=== PATIENT | female | born 1955 | race African-American/Black ===

== ENCOUNTER 2019-11-25 18:07 | Inpatient (IN) | payer BC ==
[2019-11-25] MEDS ORDERED: PANTOPRAZOLE SODIUM 40 MG VIAL IVPUSH ONE (18:21)
[2019-11-25] MEDS ORDERED: ACETAMINOPHEN 1000 MG/100 ML VIAL (NON FORMULARY) IVPB ONE (18:28)
[2019-11-25] MEDS ORDERED: SODIUM CHLORIDE 0.9% 500 ML INFUS.BAG IV ONE ×2 (18:28→20:22)
[2019-11-25] MEDS ORDERED: CEFTRIAXONE 1 GM in DEXTROSE 5%-WATER - 100 ML IVPB ONE (18:30)
--- NOTE | 2019-11-25 18:33 | PDOC ---
History of Present Illness - General Chief Complaint: Respiratory Distress Stated Complaint: DIFFICULTY BREATHING Time Seen by Provider: 11/25/19 18:27 Past History - Medical History Allergies/Adverse Reactions: Allergies Allergy/AdvReac Type Severity Reaction Status Date / Time codeine Allergy Verified 11/25/19 18:31 Home Medications: Ambulatory Orders Acetaminophen [Pain Relief] 650 mg GT Q6H PRN 11/25/19 Amlodipine Besylate [Norvasc -] 5 mg GT DAILY 11/25/19 Carvedilol [Coreg -] 25 mg GT BID 11/25/19 Doxazosin Mesylate [Cardura] 1 mg GT DAILY 11/25/19 Folic Acid 1 mg GT DAILY 11/25/19 Losartan Potassium [Cozaar] 100 mg GT DAILY 11/25/19 Pantoprazole Sodium 40 mg GT DAILY 11/25/19 Sennosides [Senna] 8.8 mg GT HS 11/25/19 Thiamine Mononitrate [Vitamin B-1] 100 mg GT DAILY 11/25/19 Anemia: Yes Cardiac Disorders: Yes (SC) CVA: Yes (HEMORRHAGE) COPD: No (CHRONIC REP FAILURE) HTN: Yes Hypercholesterolemia: Yes - Surgical History GI Surgery: Yes (g tube) - Reproductive History Is Patient Now?: No - Psycho-Social/Smoking History Smoking History: Smoker current status UNK Have you smoked in the past 12 months: No Information on smoking cessation initiated: No - Substance Abuse Hx (Audit-C & DAST Scrn) How often the patient has a drink containing alcohol: Never Score: In Men: 4 or > Positive; In Women: 3 or > Positive: 0 Screen Result (Pos requires Nsg. Audit-10AR): Negative In the last yr the pt used illegal drug/Rx for NonMed reason: No Score: Yes response is considered Positive: 0 Screen Result (Positive result requires Nsg. DAST-10): Negative *Physical Exam - Vital Signs Last Vital Signs Temp Pulse Resp BP Pulse Ox 100.6 F H 78 16 73/45 L 92 L 11/25/19 18:23 11/25/19 18:23 11/25/19 18:23 11/25/19 18:23 11/25/19 18:23 ED Treatment Course - LABORATORY CBC & Chemistry Diagram: 11/25/19 23:37 11/25/19 18:00 Medical Decision Making - Critical Care Time Total Critical Care Time (minutes): 60 Critical Care Statement: The care of this patient involved high complexity decision making to prevent further life threatening deterioration of the patient's condition and/or to evaluate & treat vital organ system(s) failure or risk of failure. 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 Pt self- removed trach at 3pm, code and brief CPR was done at 430pm but NH states pulse was always present, trach was re-inserted by RT at [facility] at 6pm with O2 sat 84%. When trach replaced, there was approx 600cc of coffee ground emesis. 250ml NS given by EMS. Pt on vent. Surrogate Linda [place]. ROS: unable to obtain 2/2 AMS PE: Gen: Tracking with eyes and responsive to pain only, hypotensive, tachycardic, 95% on trach/vent HEENT: PERRL, EOMI/tracking, dry MM, NCAT, half of hair shaved. No conjunctival pallor. Sclera are non-icteric. Trach in place. Crepitus anterior chest and neck b/l. CV: Tachycardic rate and regular rhythm. PULM: No resp distress. On ventilator. CTAB, no wheezes, rales, or rhonchi. ABD: soft, NT/ND, no rebound tenderness or guarding. G-tube in place. BACK: No TTP of c/t/l-spine. No step-offs or deformities. MSK: No bony deformities. 2+ pulses in all extremities. NEURO: Tracking with eyes and responsive to pain only. PERRL. L side facial droop EXTREMITIES: No cyanosis. No clubbing. No edema. No calf tenderness. PSYCH: Unable to assess SKIN: Warm and dry. No rashes. No jaundice. 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 Hypotensive, tachycardic, 95% on trach/vent, afebrile, tracking with eyes and responsive to pain only. -Sepsis -UGIB vs traumatic trach ->600cc blood loss -Protonix bolus and drip -Ceftriaxone -Ofirmev -IVF -2units pRBCs: consent obtained from pt nodding and from at bedside (signed); confirmed pt is Pentecostal and not Sikhism (which is stated on [facility] paperwork) -ICU consult -Updated Linda Thakkar and daughter 11/25/19 19:52 Pt now responsive. Nods and shakes head to answer some questions. Able to squeeze hands, move feet, and open eyes. ICU consult here. MAP 65 11/25/19 20:23 EKG reviewed: NSR, 78bpm, QTc 462ms, no e/o acute ischemia, no priors for comparison CXR reviewed: soft tissue air accumulation w/in supraclavicular regions b/l and lower neck b/l Labs reviewed. UTI -Vanc -Zosyn 11/25/19 21:13 MAP 88 Consent obtained for CVC if needed. Pt admitted ICU 11/25/19 23:36 CTH reviewed with ICU Dr Harris. -Dr Harris consulting NSGY 11/27/19 18:01 Discharge - Discharge Information Problems reviewed: Yes Clinical Impression/Diagnosis: UGIB (upper gastrointestinal bleed), AMS (altered mental status), Tracheostomy complication Condition: Critical Disposition: TRANSFER ACUTE CARE/OTHER HOSP - Admission Yes - Follow up/Referral - Patient Discharge Instructions - Post Discharge Activity
[2019-11-25 18:48] LABS: BASO % 0.6 % (0-2.0); EOS % 1.5 % (0-4.5); HEMATOCRIT 27.4 % (32.4-45.2); LYMPH % 8.5 % (8-40); MCH 28.7 pg (25.7-33.7); MCHC 32.6 g/dl (32.0-36.0); MEAN PLT VOLUME 7.8 fl (7.5-11.1); NEUT % 83.4 % (42.8-82.8); PLATELET COUNT 374 K/MM3 (134-434); RBC 3.12 M/mm3 (3.60-5.2); RDW 14.2 % (11.6-15.6); WHITE BLOOD COUNT 8.8 K/mm3 (4.0-10.0)
[2019-11-25 18:49] LABS: VENOUS BASE EXCESS 5.4 mmol/L (-2-2); VENOUS O2 SATURATION 80.3 % (70-80); VENOUS PCO2 58.8 mmHg (38-52); VENOUS PH 7.356 (7.310-7.410)
[2019-11-25] MEDS ORDERED: PANTOPRAZOLE SODIUM 40 MG/100 ML BAG IVPB ONE (18:50)
[2019-11-25] MEDS ORDERED: CEFTRIAXONE 1 GM/50 ML BAG ONE (18:50)
[2019-11-25] MEDS ORDERED: PANTOPRAZOLE SODIUM 40 MG VIAL ONE (18:51)
[2019-11-25 18:57] LABS: INR 1.29 (0.83-1.09); PROTHROMBIN TIME (PATIENT) 15.3 SEC (9.7-13.0)
[2019-11-25 19:00] LABS: ACTIVATED PTT 27.4 SECONDS (25.2-36.5)
--- NOTE | 2019-11-25 19:15 | PDOC ---
Documentation entered by Sobia Mosley SCRIBE, acting as scribe for Ryanne Kramer MD. Ryanne Kramer MD: This documentation has been prepared by the bhavnaibeDimitri Ana, SCRIBE, under my direction and personally reviewed by me in its entirety. I confirm that the documentation accurately reflects all work, treatment, procedures, and medical decision making performed by me. Attending Attestation - Resident Resident Name: Rupinder Cordero - ED Attending Attestation I have performed the following: I have examined & evaluated the patient, The case was reviewed & discussed with the resident, I agree w/resident's findings & plan, Exceptions are as noted - HPI HPI: 11/25/19 18:37 Patient is a 64 year old female with a significant past medical history of recent brain bleed , tracheostomy and g tube who presents to the ED, from senior living, with multiple episodes of vomiting and recently dislodged trach tube that was reinserted a few hours ago. Patient denies: any other related symptoms. Allergies: codeine 11/25/19 19:12 11/25/19 19:36 - Physicial Exam PE: 11/25/19 19:15 Unresponsive 64 yo female BIBA from [facility] after she has bleeding from around her trach site after it's reinsertion earlier today. She had a stroke in the past month and the tracheostomy and peg tube are new in the past few weeks 11/25/19 19:18 11/25/19 19:19 head no scalp laceration neck tracheostomy tube in place, crepitus around anterior neck lungs rhonchi cvs [id number] abdomen protuberant skin warm and dry neuro tracks with eyes,will follow commands 11/25/19 19:35 11/25/19 19:44 11/25/19 21:17 - Critical Care Time Total Critical Care Time: 60 Critical Care Statement: The care of this patient involved high complexity decision making to prevent further life threatening deterioration of the patient's condition and/or to evaluate & treat vital organ system(s) failure or risk of failure. - Medical Decision Making 11/25/19 20:51 There was a discussion with the patient and the as to whether she can receive blood products, The family states she is [employer] but NOT Spiritism and she agrees to blood transfusions as needed. 11/25/19 21:18 pt has UTI, antibiotics given negative troponin lactic =2.3 no leukocytosis admitted to ICU 11/25/19 23:46 Radiologist called with results of CAT scan that showed 1- acute blood within occipital horn of the lateral ventricles bilaterally with resultant obstructive hydrocephalus 2-A focal expansile lesion within the left posterior meño 3-Prior right frontal calvarium ventriculostomy tract this information was given to Dr Albert Santos in the ICU and the pt is being transferred back to [facility] where her initial neurosurgery was done recently 11/26/19 00:38 Discharge - Discharge Information Problems reviewed: Yes Clinical Impression/Diagnosis: UGIB (upper gastrointestinal bleed), AMS (altered mental status), Tracheostomy complication Condition: Poor - Follow up/Referral - Patient Discharge Instructions - Post Discharge Activity
[2019-11-25] MEDS: PANTOPRAZOLE SODIUM 80 MG in SODIUM CHLORIDE 100 ML IVPB SCH ×2 (19:20→23:41)
[2019-11-25 19:21] LABS: ALBUMIN 2.5 g/dl (3.4-5.0); ALK PHOS 82 U/L (45-117); ANION GAP 7 MMOL/L (8-16); BILIRUBIN,TOTAL 0.4 mg/dL (0.2-1); BLOOD UREA NITROGEN 32.9 mg/dL (7-18); CALCIUM 9.2 mg/dL (8.5-10.1); CHLORIDE 99 mmol/L (98-107); CO2 31 mmol/L (21-32); CREATININE 0.9 mg/dL (0.55-1.3); GLUCOSE,RANDOM 264 mg/dL (74-106); MAGNESIUM 2.5 mg/dL (1.8-2.4); POTASSIUM 4.6 mmol/L (3.5-5.1); SGOT/AST 28 U/L (15-37); SGPT/ALT 30 U/L (13-61); SODIUM 136 mmol/L (136-145); TOT PROT 7.2 g/dl (6.4-8.2)
[2019-11-25 20:01] LABS: EPI CELLS 31 /uL (0-25.1); HYALINE CASTS 107 /uL (0-3.1); PH,URINE 8.5 (5.0-8.0); URINE APPEARANCE TURBID; URINE BACTERIA >9,000 /uL (0-1359); URINE BILIRUBIN NEGATIVE (NEGATIVE); URINE COLOR YELLOW; URINE GLUCOSE (UA) NEGATIVE (NEGATIVE); URINE KETONE NEGATIVE (NEGATIVE); URINE LEUK ESTERASE 2+ (NEGATIVE); URINE NITRITE NEGATIVE (NEGATIVE); URINE PROTEIN 2+ (NEGATIVE); URINE RBC 61 /uL (0-23.9); URINE WBC 1675 /uL (0-25.8)
--- NOTE | 2019-11-25 20:17 | HP ---
CHIEF COMPLAINT: coffee ground emesis PCP: unknown HISTORY OF PRESENT ILLNESS: 64 yo female PMHx of CVA about a month ago s/p trach and peg, BIBA from [facility] s/p tach being dislodged. According to ED, it was reported that the patient pulled out her trach around 3 PM today. EMS was called and there are reports of CPR being done around 4:30 PM despite a report of the patient ever being pulseless. The trach was apparently replaced by EMS around 6 PM and during the replacement food was found in the patient's throat. At some point, during this time with EMS, EMS witnessed 600cc of coffee ground emesis coming out of trach and mouth. The patient was unresponsive when brought into the ED and hypotensive, started on IVF. When we went to see the patient, the patient was non-verbal but awake and responsive. She was following commands and nodding her head yes and no to questions. She was trying to mouth words. Patient's family was contacted and is on their way. ER course was notable for: (1) MAP < 60 s/p 2L NS (2) Pending Head CT (3) 1 unit pRBCs Recent Travel: no PAST MEDICAL HISTORY: CVA about a month ago PAST SURGICAL HISTORY: unable to obtain Family HX: Unable to obtain Social History: unable to obtain Smoking: Alcohol: Drugs: Allergies codeine Allergy (Verified 11/25/19 18:31) HOME MEDICATIONS: Home Medications Medication Instructions Recorded Acetaminophen [Pain Relief] 650 mg GT Q6H PRN 11/25/19 Amlodipine Besylate [Norvasc -] 5 mg GT DAILY 11/25/19 Carvedilol [Coreg -] 25 mg GT BID 11/25/19 Doxazosin Mesylate [Cardura] 1 mg GT DAILY 11/25/19 Folic Acid 1 mg GT DAILY 11/25/19 Losartan Potassium [Cozaar] 100 mg GT DAILY 11/25/19 Pantoprazole Sodium 40 mg GT DAILY 11/25/19 Sennosides [Senna] 8.8 mg GT HS 11/25/19 Thiamine Mononitrate [Vitamin B-1] 100 mg GT DAILY 11/25/19 REVIEW OF SYSTEMS: unable to assess CONSTITUTIONAL: Absent: fever, chills, diaphoresis, generalized weakness, malaise, loss of appetite, weight change HEENT: Absent: rhinorrhea, nasal congestion, throat pain, throat swelling, difficulty swallowing, mouth swelling, ear pain, eye pain, visual changes CARDIOVASCULAR: Absent: chest pain, syncope, palpitations, irregular heart rate, lightheadedness, peripheral edema RESPIRATORY: Absent: cough, shortness of breath, dyspnea with exertion, orthopnea, wheezing, stridor, hemoptysis GASTROINTESTINAL: Absent: abdominal pain, abdominal distension, nausea, vomiting, diarrhea, constipation, melena, hematochezia GENITOURINARY: Absent: dysuria, frequency, urgency, hesitancy, hematuria, flank pain, genital pain MUSCULOSKELETAL: Absent: myalgia, arthralgia, joint swelling, back pain, neck pain SKIN: Absent: rash, itching, pallor HEMATOLOGIC/IMMUNOLOGIC: Absent: easy bleeding, easy bruising, lymphadenopathy, frequent infections ENDOCRINE: Absent: unexplained weight gain, unexplained weight loss, heat intolerance, cold intolerance NEUROLOGIC: Absent: headache, focal weakness or paresthesias, dizziness, unsteady gait, seizure, mental status changes, bladder or bowel incontinence PSYCHIATRIC: Absent: anxiety, depression, suicidal or homicidal ideation, hallucinations. PHYSICAL EXAMINATION 11/25/19 11/25/19 11/25/19 18:20 18:23 18:44 Temperature 100.6 F H Pulse Rate 78 Pulse Rate [ Apical] Respiratory 22 H 16 Rate Blood Pressure 73/45 L Blood Pressure [Left Arm] O2 Sat by Pulse 96 92 L 100 Oximetry (%) 11/25/19 11/25/19 11/25/19 18:48 19:15 20:02 Temperature Pulse Rate Pulse Rate [ 79 76 75 Apical] Respiratory 16 16 Rate Blood Pressure Blood Pressure 78/49 L 83/54 L 90/42 L [Left Arm] O2 Sat by Pulse 100 100 Oximetry (%) GENERAL: Awake, alert, oriented person. Patient having jerking movements throughout exam. Also motion like she's gagging but denies needing to vomit, having hiccups or choking. HEAD: Right side of head shaven with what looks like possible scarred area over right temporal/parietal junction EYES: PERRL with sluggish left pupil. EOM weak on left side. Patient eyelid droop on left side ENT: Trach in place. Entire L sided facial droop. Tongue deviates to L. NECK: crepitus/air felt sub q tissue LUNGS: BL ronchi. HEART: RRR, s1, s2 ABDOMEN: Obese, peg tube placed with surrounding dried blood. Surgical scar MUSCULOSKELETAL: Normal range of motion at all joints. No bony deformities or tenderness. No CVA tenderness. UPPER EXTREMITIES: Weaker R shoulder 2/5. R arm 1/5. Left arm 3/5 strength. LOWER EXTREMITIES: LE 2/5 strength BL. Decreased sensation in R leg NEUROLOGICAL: CN deficits as noted throughout physical exam SKIN: no rashes or lesions noted Laboratory Results - last 24 hr 11/25/19 11/25/19 11/25/19 18:00 18:00 18:00 WBC 8.8 RBC 3.12 L Hgb 9.0 L Hct 27.4 L MCV 88.0 MCH 28.7 MCHC 32.6 RDW 14.2 Plt Count 374 MPV 7.8 Absolute Neuts (auto) 7.3 Neutrophils % 83.4 H Lymphocytes % 8.5 Monocytes % 6.0 Eosinophils % 1.5 Basophils % 0.6 Nucleated RBC % 0 PT with INR 15.30 H INR 1.29 H PTT (Actin FS) 27.4 VBG pH POC VBG pCO2 POC VBG pO2 VBG HCO3 VBG O2 Sat (Cedrick) VBG Base Excess Sodium 136 Potassium 4.6 Chloride 99 Carbon Dioxide 31 Anion Gap 7 L BUN 32.9 H Creatinine 0.9 Est GFR (CKD-EPI)AfAm 78.87 Est GFR (CKD-EPI)NonAf 68.05 Random Glucose 264 H Lactic Acid Calcium 9.2 Magnesium 2.5 H Total Bilirubin 0.4 AST 28 ALT 30 Alkaline Phosphatase 82 Creatine Kinase 52 Troponin I < 0.02 Total Protein 7.2 Albumin 2.5 L Urine Color Urine Appearance Urine pH Ur Specific [place] Urine Protein Urine Glucose (UA) Urine Ketones Urine Blood Urine Nitrite Urine Bilirubin Urine Urobilinogen Ur Leukocyte Esterase Urine WBC (Auto) Urine RBC (Auto) Urine Casts (Auto) U Epithel Cells (Auto) Urine Bacteria (Auto) 11/25/19 11/25/19 11/25/19 18:00 18:00 18:00 WBC RBC Hgb Hct MCV MCH MCHC RDW Plt Count MPV Absolute Neuts (auto) Neutrophils % Lymphocytes % Monocytes % Eosinophils % Basophils % Nucleated RBC % PT with INR INR PTT (Actin FS) VBG pH 7.356 POC VBG pCO2 58.8 H POC VBG pO2 47.3 VBG HCO3 32.2 H VBG O2 Sat (Cedrick) 80.3 H VBG Base Excess 5.4 H Sodium Potassium Chloride Carbon Dioxide Anion Gap BUN Creatinine Est GFR (CKD-EPI)AfAm Est GFR (CKD-EPI)NonAf Random Glucose Lactic Acid 2.3 H* Calcium Magnesium Total Bilirubin AST ALT Alkaline Phosphatase Creatine Kinase Troponin I < 0.02 Total Protein Albumin Urine Color Urine Appearance Urine pH Ur Specific [place] Urine Protein Urine Glucose (UA) Urine Ketones Urine Blood Urine Nitrite Urine Bilirubin Urine Urobilinogen Ur Leukocyte Esterase Urine WBC (Auto) Urine RBC (Auto) Urine Casts (Auto) U Epithel Cells (Auto) Urine Bacteria (Auto) 11/25/19 19:00 WBC RBC Hgb Hct MCV MCH MCHC RDW Plt Count MPV Absolute Neuts (auto) Neutrophils % Lymphocytes % Monocytes % Eosinophils % Basophils % Nucleated RBC % PT with INR INR PTT (Actin FS) VBG pH POC VBG pCO2 POC VBG pO2 VBG HCO3 VBG O2 Sat (Cedrick) VBG Base Excess Sodium Potassium Chloride Carbon Dioxide Anion Gap BUN Creatinine Est GFR (CKD-EPI)AfAm Est GFR (CKD-EPI)NonAf Random Glucose Lactic Acid Calcium Magnesium Total Bilirubin AST ALT Alkaline Phosphatase Creatine Kinase Troponin I Total Protein Albumin Urine Color Yellow Urine Appearance Turbid Urine pH 8.5 H Ur Specific [place] 1.017 Urine Protein 2+ H Urine Glucose (UA) Negative Urine Ketones Negative Urine Blood Trace Urine Nitrite Negative Urine Bilirubin Negative Urine Urobilinogen 1.0 Ur Leukocyte Esterase 2+ H Urine WBC (Auto) 1675 Urine RBC (Auto) 61 Urine Casts (Auto) 107 U Epithel Cells (Auto) 31 Urine Bacteria (Auto) >9,000 Home Medication List Medication Instructions Recorded Confirmed Type Acetaminophen [Pain Relief] 650 mg GT Q6H PRN 11/25/19 11/25/19 History Amlodipine Besylate [Norvasc -] 5 mg GT DAILY 11/25/19 11/25/19 History Carvedilol [Coreg -] 25 mg GT BID 11/25/19 11/25/19 History Doxazosin Mesylate [Cardura] 1 mg GT DAILY 11/25/19 11/25/19 History Folic Acid 1 mg GT DAILY 11/25/19 11/25/19 History Losartan Potassium [Cozaar] 100 mg GT DAILY 11/25/19 11/25/19 History Pantoprazole Sodium 40 mg GT DAILY 11/25/19 11/25/19 History Sennosides [Senna] 8.8 mg GT HS 11/25/19 11/25/19 History Thiamine Mononitrate [Vitamin B-1] 100 mg GT DAILY 11/25/19 11/25/19 History Active Medications Generic Name Dose Route Start Last Admin Trade Name Freq PRN Reason Stop Dose Admin Pantoprazole Sodium 80 mg/ 100 mls @ 10 mls/hr 11/25/19 18:31 11/25/19 19:20 Sodium Chloride IVPB 11/28/19 18:31 10 mls/hr Q10H ROSSI Administration 8 MG/HR CXR: No definite infiltrate or pleural effusion is seen. Mild left lower lobe discoid atelectasis/scarring is seen. There is no evidence of pneumothorax or pneumomediastinum. Soft tissue air accumulation is noted within the supraclavicular regions bilaterally. There appears to be a tracheostomy tube in place without gross malposition on the basis of this frontal view. The heart, ronal and mediastinum appear unremarkable as visualized. Correlate with follow-up imaging. Impression: Soft tissue air accumulation is seen within the supraclavicular regions bilaterally and partially imaged lower neck bilaterally. ASSESSMENT/PLAN: 64 yo female PMHx of CVA about a month ago s/p trach and peg, BIBA from [facility] after patient removed her peg today. Patient BIBA with very confusing history of events that include coffee ground emesis of 600cc, subcutaneous emphysema, and AMS during the dislodged peg incident. Patient currently hypotensive, being admitted to ICU for respiratory distress, with hypotension requiring pressors. Neuro - hx of CVA 1 month ago - unclear baseline mental status - currently responsive - possibly anoxic brain injury - Repeat head CT Pulm - trach on vent - s/p trach replaced by EMS - sub q emphysema Cardio - hypotensive - receiving 1 unit pRBC - consider pressors if MAP remains <60 Renal - no current issues GI - coffee ground emesis - Peg tube - no known hx of GI bleed - protonix drip started in ED - Consult GI Heme - receiving 1 unit pRBC - repeat CBC after unit ID - no antibiotics FEN - NPO - monitor & replete electrolytes PRN DVT Ppx - SCDs - hold AC due to GI bleed GI Ppx - protonix drip Dispo: admit to ICU Family Medical History Family History: As Documented Visit type - Emergency Visit Emergency Visit: Yes ED Registration Date: 11/25/19 Care time: The patient presented to the Emergency Department on the above date and was hospitalized for further evaluation of their emergent condition. - New Patient This patient is new to me today: Yes Date on this admission: 11/30/19 - Critical Care Critical Care patient: Yes Total Critical Care Time (in minutes): 36 Critical Care Statement: The care of this patient involved high complexity decision making to prevent further life threatening deterioration of the patient's condition and/or to evaluate & treat vital organ system(s) failure or risk of failure. ATTENDING PHYSICIAN STATEMENT I saw and evaluated the patient. I reviewed the resident's note and discussed the case with the resident. I agree with the resident's findings and plan as documented. SUBJECTIVE: OBJECTIVE: ASSESSMENT AND PLAN:
[2019-11-25 20:18] LABS: YEAST NONE SEEN (NEGATIVE)
[2019-11-25] MEDS ORDERED: VANCOMYCIN 1 GM in D5W (PRE-DOCKED) 1,000 MG/250 ML IVPB ONE (20:22)
[2019-11-25] MEDS ORDERED: PIPERACILLIN/TAZOB 3.375 GM 3.375 GM in DEXTROSE 5%-WATER - 50 ML IVPB ONE (20:23)
[2019-11-25] MEDS ORDERED: VANCOMYCIN 1 GRAM (PRE-DOCKED) 1,000 MG/250 ML BAG IVPB ONE (20:30)
[2019-11-25] MEDS ORDERED: PIPERACILLIN/TAZOB 3.375 GM 3.375 GM/50 ML BAG IVPB ONE (20:31)
[2019-11-25] MEDS ORDERED: CHLORHEXIDINE GLUCONATE 4% CLEANSER FOR DECOLONIZATION TP SCH (22:00)
[2019-11-25] MEDS ORDERED: MUPIROCIN 2% TOPICAL OINTMENT FOR DECOLONIZATION NS SCH (22:00)
[2019-11-25] MEDS ORDERED: ACETAMINOPHEN 1000 MG/100 ML VIAL (NON FORMULARY) IVPB PRN (23:20)
[2019-11-25 23:46] LABS: HEMATOCRIT 26.3 % (32.4-45.2); HEMOGLOBIN 8.5 GM/dL (10.7-15.3); MCH 28.4 pg (25.7-33.7); MCHC 32.2 g/dl (32.0-36.0); MEAN PLT VOLUME 6.9 fl (7.5-11.1); PLATELET COUNT 284 K/MM3 (134-434); RBC 2.98 M/mm3 (3.60-5.2); WHITE BLOOD COUNT 8.1 K/mm3 (4.0-10.0)
--- NOTE | 2019-11-26 00:07 | PN ---
Progress Note (short form) - Note Progress Note: The pt was admitted to the ICU for tracheostomy dislodgement, concern for possible GI bleed, and labile BPs. The pt's tracheostomy is secure in place. CT head notable for acute intraventricular bleed with hydrocephalus as well as a possible lesion/mass. Dr. Patiño was consulted and recommended transferring the pt back to [facility] given recent procedures/interventions there Consent for transfer obtained from , and daughter updated as well, consent form signed Radiology disc made and sent w/ pt and images sent through PACS Pt on protonix gtt for concern of GI bleed Pt opens eyes to voice, PERRL; moves all extremities, RUE/RLE weakness; L facial droop; follows simple commands Trach in place but not sutured, no active bleed ABD soft/NTTP; PEG in place with small amount of dried blood around entry w/o active hemorrhage RRR Equal but coarse breath sounds b/l Hgb stable, 8.5 from 9 Pt s/p Vanc/Zosyn for sepsis 2/2 UTI Pt s/p Ceftriaxone 2L IVF bolus Accepting physician: Dr. Nunez Sign out given by Dr. Alfred at 1215 Discharge - Discharge Information Problems reviewed: Yes Condition: Poor Disposition: TRANSFER ACUTE CARE/OTHER HOSP - Follow up/Referral Referrals: Angel Villar MD [Primary Care Provider] - - Patient Discharge Instructions - Post Discharge Activity - Transfer to Acute Care Facility Receiving Facility Name: [facility] Accepting Physician:: Dr. Nunez
[2019-11-26 00:28] VITALS: TEMP 98.4; BMI 32.8
--- NOTE | 2019-11-26 01:11 | DS ---
Physical Exam: SUBJECTIVE: Patient seen and examined at bedside. Alert, responsive, but nonverbal due to tracheotomy. She is able to understand that we are trans ferring. Unable to endorse/deny ROS OBJECTIVE: Vital Signs Period Temp Pulse Resp BP Sys/[place] Pulse Ox Last 24 Hr 98.4 F-100.6 F 74-79 16-22 73-115/42-78 92-100 PHYSICAL EXAM GENERAL: Awake, alert, not oriented HEAD: Right side of head shaven with what looks like possible scarred area over right temporal/parietal junction EYES: PERRL with sluggish left pupil. EOM weak on left side. Patient eyelid droop on left side ENT: Trach in place. Entire L sided facial droop. Tongue deviates to L. NECK: crepitus/air felt sub q tissue LUNGS: BL ronchi. HEART: RRR, s1, s2 ABDOMEN: Obese, peg tube placed with surrounding dried blood. Surgical scar MUSCULOSKELETAL: Normal range of motion at all joints. No bony deformities or tenderness. No CVA tenderness. UPPER EXTREMITIES: Weaker R shoulder 2/5. R arm 1/5. Left arm 3/5 strength. LOWER EXTREMITIES: LE 2/5 strength BL. Decreased sensation in R leg NEUROLOGICAL: CN deficits as noted throughout physical exam SKIN: no rashes or lesions noted LABS Laboratory Results - last 24 hr 11/25/19 11/25/19 11/25/19 18:00 18:00 18:00 WBC 8.8 RBC 3.12 L Hgb 9.0 L Hct 27.4 L MCV 88.0 MCH 28.7 MCHC 32.6 RDW 14.2 Plt Count 374 MPV 7.8 Absolute Neuts (auto) 7.3 Neutrophils % 83.4 H Lymphocytes % 8.5 Monocytes % 6.0 Eosinophils % 1.5 Basophils % 0.6 Nucleated RBC % 0 PT with INR 15.30 H INR 1.29 H PTT (Actin FS) 27.4 VBG pH POC VBG pCO2 POC VBG pO2 VBG HCO3 VBG O2 Sat ([place]) VBG Base Excess Sodium 136 Potassium 4.6 Chloride 99 Carbon Dioxide 31 Anion Gap 7 L BUN 32.9 H Creatinine 0.9 Est GFR (CKD-EPI)AfAm 78.87 Est GFR (CKD-EPI)NonAf 68.05 Random Glucose 264 H Lactic Acid Calcium 9.2 Magnesium 2.5 H Total Bilirubin 0.4 AST 28 ALT 30 Alkaline Phosphatase 82 Creatine Kinase 52 Troponin I < 0.02 Total Protein 7.2 Albumin 2.5 L Urine Color Urine Appearance Urine pH Ur Specific [place] Urine Protein Urine Glucose (UA) Urine Ketones Urine Blood Urine Nitrite Urine Bilirubin Urine Urobilinogen Ur Leukocyte Esterase Urine WBC (Auto) Urine RBC (Auto) Urine Casts (Auto) U Pathogenic Cast Auto U Epithel Cells (Auto) Urine Bacteria (Auto) Urine Yeast (Auto) Stool Occult Blood Blood Type Antibody Screen 11/25/19 11/25/19 11/25/19 18:00 18:00 18:00 WBC RBC Hgb Hct MCV MCH MCHC RDW Plt Count MPV Absolute Neuts (auto) Neutrophils % Lymphocytes % Monocytes % Eosinophils % Basophils % Nucleated RBC % PT with INR INR PTT (Actin FS) VBG pH 7.356 POC VBG pCO2 58.8 H POC VBG pO2 47.3 VBG HCO3 32.2 H VBG O2 Sat ([place]) 80.3 H VBG Base Excess 5.4 H Sodium Potassium Chloride Carbon Dioxide Anion Gap BUN Creatinine Est GFR (CKD-EPI)AfAm Est GFR (CKD-EPI)NonAf Random Glucose Lactic Acid 2.3 H* Calcium Magnesium Total Bilirubin AST ALT Alkaline Phosphatase Creatine Kinase Troponin I < 0.02 Total Protein Albumin Urine Color Urine Appearance Urine pH Ur Specific [place] Urine Protein Urine Glucose (UA) Urine Ketones Urine Blood Urine Nitrite Urine Bilirubin Urine Urobilinogen Ur Leukocyte Esterase Urine WBC (Auto) Urine RBC (Auto) Urine Casts (Auto) U Pathogenic Cast Auto U Epithel Cells (Auto) Urine Bacteria (Auto) Urine Yeast (Auto) Stool Occult Blood Blood Type Antibody Screen 11/25/19 11/25/19 11/25/19 18:23 19:00 23:37 WBC RBC Hgb Hct MCV MCH MCHC RDW Plt Count MPV Absolute Neuts (auto) Neutrophils % Lymphocytes % Monocytes % Eosinophils % Basophils % Nucleated RBC % PT with INR INR PTT (Actin FS) VBG pH POC VBG pCO2 POC VBG pO2 VBG HCO3 VBG O2 Sat (Cedrick) VBG Base Excess Sodium Potassium Chloride Carbon Dioxide Anion Gap BUN Creatinine Est GFR (CKD-EPI)AfAm Est GFR (CKD-EPI)NonAf Random Glucose Lactic Acid Calcium Magnesium Total Bilirubin AST ALT Alkaline Phosphatase Creatine Kinase Troponin I Total Protein Albumin Urine Color Yellow Urine Appearance Turbid Urine pH 8.5 H Ur Specific [place] 1.017 Urine Protein 2+ H Urine Glucose (UA) Negative Urine Ketones Negative Urine Blood Trace Urine Nitrite Negative Urine Bilirubin Negative Urine Urobilinogen 1.0 Ur Leukocyte Esterase 2+ H Urine WBC (Auto) 1675 Urine RBC (Auto) 61 Urine Casts (Auto) 107 U Pathogenic Cast Auto None seen U Epithel Cells (Auto) 31 Urine Bacteria (Auto) >9,000 Urine Yeast (Auto) None seen Stool Occult Blood Negative Blood Type O POSITIVE Antibody Screen Negative 11/25/19 23:37 WBC 8.1 RBC 2.98 L Hgb 8.5 L Hct 26.3 L MCV 88.0 MCH 28.4 MCHC 32.2 RDW 14.0 Plt Count 284 D MPV 6.9 L D Absolute Neuts (auto) Neutrophils % Lymphocytes % Monocytes % Eosinophils % Basophils % Nucleated RBC % PT with INR INR PTT (Actin FS) VBG pH POC VBG pCO2 POC VBG pO2 VBG HCO3 VBG O2 Sat ([place]) VBG Base Excess Sodium Potassium Chloride Carbon Dioxide Anion Gap BUN Creatinine Est GFR (CKD-EPI)AfAm Est GFR (CKD-EPI)NonAf Random Glucose Lactic Acid Calcium Magnesium Total Bilirubin AST ALT Alkaline Phosphatase Creatine Kinase Troponin I Total Protein Albumin Urine Color Urine Appearance Urine pH Ur Specific [place] Urine Protein Urine Glucose (UA) Urine Ketones Urine Blood Urine Nitrite Urine Bilirubin Urine Urobilinogen Ur Leukocyte Esterase Urine WBC (Auto) Urine RBC (Auto) Urine Casts (Auto) U Pathogenic Cast Auto U Epithel Cells (Auto) Urine Bacteria (Auto) Urine Yeast (Auto) Stool Occult Blood Blood Type Antibody Screen HOSPITAL COURSE: 64 yo female PMHx of CVA about a month ago s/p trach and peg, BIBA from [facility] s/p tach being dislodged. According to ED, it was reported that the patient pulled out her trach around 3 PM today. EMS was called and there are reports of CPR being done around 4:30 PM despite a report of the patient ever being pulseless. The trach was apparently replaced by EMS around 6 PM and during the replacement food was found in the patient's throat. At some point, during this time with EMS, EMS witnessed 600cc of coffee ground emesis coming out of trach and mouth. The patient was unresponsive when brought into the ED and hypotensive, started on IVF. When we went to see the patient, the patient was non-verbal but awake and responsive. She was following commands and nodding her head yes and no to questions. She was trying to mouth words. Patient's family was contacted and is on their way. The pt was admitted to the ICU for tracheostomy dislodgement, concern for possible GI bleed, and labile BPs. The pt's tracheostomy is secure in place. CT head notable for acute intraventricular bleed with hydrocephalus as well as a possible lesion/mass. Dr. Patiño was consulted and recommended transferring the pt back to [facility] given recent procedures/interventions there Consent for transfer obtained from , and daughter updated as well, consent form signed Radiology disc made and sent w/ pt and images sent through PACS Pt on protonix gtt for concern of GI bleed Pt opens eyes to voice, PERRL; moves all extremities, RUE/RLE weakness; L facial droop; follows simple commands Trach in place but not sutured, no active bleed ABD soft/NTTP; PEG in place with small amount of dried blood around entry w/o active hemorrhage RRR Equal but coarse breath sounds b/l Hgb stable, 8.5 from 9 Pt s/p Vanc/Zosyn for sepsis 2/2 UTI Pt s/p Ceftriaxone 2L IVF bolus Accepting physician: Dr. Nunez Sign out given by Dr. Alfred at 1215 Minutes to complete discharge: 30 Discharge Summary Problems reviewed: Yes Reason For Visit: TRACHEOSTOMY COMPLICATION, ALTERED MENTAL STATUS, Condition: Stable - Instructions Referrals: Angel Villar MD [Primary Care Provider] - Disposition: TRANSFER ACUTE CARE/OTHER HOSP - Home Medications Comprehensive Discharge Medication List: Ambulatory Orders Acetaminophen [Pain Relief] 650 mg GT Q6H PRN 11/25/19 Amlodipine Besylate [Norvasc -] 5 mg GT DAILY 11/25/19 Carvedilol [Coreg -] 25 mg GT BID 11/25/19 Doxazosin Mesylate [Cardura] 1 mg GT DAILY 11/25/19 Folic Acid 1 mg GT DAILY 11/25/19 Losartan Potassium [Cozaar] 100 mg GT DAILY 11/25/19 Pantoprazole Sodium 40 mg GT DAILY 11/25/19 Sennosides [Senna] 8.8 mg GT HS 11/25/19 Thiamine Mononitrate [Vitamin B-1] 100 mg GT DAILY 11/25/19 This patient is new to me today: Yes Date on this admission: 11/26/19 Emergency Visit: Yes ED Registration Date: 11/25/19 Care time: The patient presented to the Emergency Department on the above date and was hospitalized for further evaluation of their emergent condition. Critical Care patient: No - Discharge Referral Referred to [facility] Med P.C.: No ATTENDING PHYSICIAN STATEMENT I saw and evaluated the patient. I reviewed the resident's note and discussed the case with the resident. I agree with the resident's findings and plan as documented. SUBJECTIVE: OBJECTIVE: ASSESSMENT AND PLAN:
[2019-11-26 01:56] VITALS: BP 109/59; PULSE 76
--- NOTE | 2019-11-26 10:16 | EKG ---
Test Reason : Blood Pressure : / mmHG Vent. Rate : 078 BPM Atrial Rate : 078 BPM P-R Int : 126 ms QRS Dur : 092 ms QT Int : 406 ms P-R-T Axes : 010 027 057 degrees QTc Int : 462 ms POOR DATA QUALITY, INTERPRETATION MAY BE ADVERSELY AFFECTED NORMAL SINUS RHYTHM NORMAL ECG NO PREVIOUS ECGS AVAILABLE Confirmed by MD Brennen, Andrea ([id number]) on 11/26/2019 10:16:26 AM Referred By: Confirmed By:Andrea Hutton MD
== END 2019-11-26 01:20 | disposition short-term general hospital (02) | DRG 208 ==
LOC: JER 18:07 → JERBED 19:54 → JICU 22:48
PROVIDERS: ADMIT Internal Medicine; ATTEND Internal Medicine
PROC: 5A1935Z Respiratory Ventilation, Less than 24 Consecutive Hours (ICD-10-PCS; principal; 2019-11-25)
DX: Z43.0 Encounter for attention to tracheostomy (principal); Z99.11 Dependence on respirator [ventilator] status; I95.9 Hypotension, unspecified; R41.82 Altered mental status, unspecified; E66.9 Obesity, unspecified; Z68.32 Body mass index [BMI] 32.0-32.9, adult
CPT/HCPCS: 36415; 70450-TC; 71045-TC-FY; 80053; 81003; 82272; 82550; 82803; 83605; 83735; 84484; 85025; 85027; 85610; 85730; 86850; 86900; 86901; 86922; 87040; 87086; 87186; 93005; 93010; 99285-25; J0131; U0003